=== PATIENT | male | born 1950 | race Caucasian/White ===

== ENCOUNTER → 2016-03-16 | Outpatient (CLI) | payer BC ==
[~2016-03-16] MED LIST: ALL180 PO; ALPR0.25 PO; ASCA500 PO; ASPI-435 PO; ATOR-14 PO; B-COTAB18 PO; COEN75CA PO; CRAN1CAP15 PO; LISI40TA PO; MULT-190 PO; MULT-506 PO; OMEP40CA18 PO; SERT1TAB71 PO; ZNT/300 PO
[2016-03-16 11:13] LABS: BASO ABS # 0.05 K/uL (0-0.2); COMPLETE YES; EOS % 4.8 %; HEMATOCRIT 38.5 % (42-52); IG% 0.2 %; LYMPH % 34.9 %; LYMPH ABS # 1.76 K/uL (1.2-3.4); MEAN CELL VOLUME 93.2 fL (80-100); MEAN CORPUSCULAR HEMOGLOBIN 31.5 pg (25-34); MEAN CORPUSCULAR HGB CONC 33.8 g/dl (32-36); MEAN PLATELET VOLUME 9.8 fL (7.4-10.4); MONO % 9.1 %; PLATELET COUNT 193 K/uL (130-400); RED BLOOD COUNT 4.13 M/uL (4.7-6.1); WHITE BLOOD COUNT 5.05 K/uL (4.8-10.8)
[2016-03-16 12:10] LABS: ALT/SGPT 28 U/L (12-78); AST/SGOT 17 U/L (15-37); BLOOD UREA NITROGEN 22 mg/dl (7-18); BUN/CREATININE RATIO 18.7 (10-20); CALCIUM 8.6 mg/dl (8.5-10.1); CARBON DIOXIDE 24 mmol/L (21-32); CHLORIDE 105 mmol/L (98-107); GLUCOSE 92 mg/dl (70-99); POTASSIUM 4.5 mmol/L (3.5-5.1); SODIUM 139 mmol/L (136-145)
[2016-03-16 12:14] LABS: ESTIMATED AVERAGE GLUCOSE 126 mg/dl; HA1C FLAG Normal (Normal)
[2016-03-16 12:21] LABS: ALB/GLOB RATIO 1.2 (0.9-2); ALKALINE PHOSPHATASE 66 U/L (45-117); CHOLESTEROL 157 mg/dl (0-200); HDL CHOLESTEROL 39 mg/dl; LDL CHOLESTEROL CALCULATED 83 mg/dl; TRIGLYCERIDES 177 mg/dl (0-150); VERY LOW DENSITY LIPOPROT CALC 35 mg/dl
== END | disposition home or self-care (01) ==
LOC: C.LABBC 08:26
PROVIDERS: ATTEND Internal Medicine Geriatric Medicine
DX: I10 Essential (primary) hypertension (principal); E78.5 Hyperlipidemia, unspecified; R73.9 Hyperglycemia, unspecified

== ENCOUNTER → 2016-09-18 | Outpatient (CLI) | payer BC ==
[2016-09-18 10:57] LABS: BASO % 0.4 %; BASO ABS # 0.02 K/uL (0-0.2); COMPLETE YES; EOS % 4.1 %; HEMATOCRIT 40.8 % (42-52); LYMPH % 37.7 %; LYMPH ABS # 1.75 K/uL (1.2-3.4); MEAN CELL VOLUME 93.6 fL (80-100); MEAN CORPUSCULAR HEMOGLOBIN 31.2 pg (25-34); MEAN CORPUSCULAR HGB CONC 33.3 g/dl (32-36); MONO % 9.3 %; NEUT % 48.5 %; PLATELET COUNT 222 K/uL (130-400); RED BLOOD COUNT 4.36 M/uL (4.7-6.1); WHITE BLOOD COUNT 4.64 K/uL (4.8-10.8)
[2016-09-18 11:13] LABS: BLOOD UREA NITROGEN 25 mg/dl (7-18); BUN/CREATININE RATIO 20.9 (10-20); CALCIUM 8.8 mg/dl (8.5-10.1); CARBON DIOXIDE 28 mmol/L (21-32); CHLORIDE 106 mmol/L (98-107); GLUCOSE 100 mg/dl (70-99); POTASSIUM 4.8 mmol/L (3.5-5.1); SODIUM 139 mmol/L (136-145)
== END | disposition home or self-care (01) ==
LOC: C.LABBC 08:37
PROVIDERS: ATTEND Internal Medicine Geriatric Medicine
DX: I10 Essential (primary) hypertension (principal); E78.5 Hyperlipidemia, unspecified; D64.9 Anemia, unspecified; R73.9 Hyperglycemia, unspecified

== ENCOUNTER → 2017-04-05 | Outpatient (CLI) | payer BC ==
[2017-04-05 11:24] LABS: ALBUMIN 3.9 gm/dl (3.4-5.0); ALT/SGPT 25 U/L (12-78); BLOOD UREA NITROGEN 31 mg/dl (7-18); CALCIUM 8.7 mg/dl (8.5-10.1); CARBON DIOXIDE 29 mmol/L (21-32); CHOLESTEROL 167 mg/dl (0-200); CREATININE 1.14 mg/dl (0.60-1.40); GLUCOSE 94 mg/dl (70-99); HEMOGLOBIN A1C 5.9 % (4.5-5.6); SODIUM 139 mmol/L (136-145)
[2017-04-05 11:34] LABS: ALKALINE PHOSPHATASE 58 U/L (45-117); AST/SGOT 20 U/L (15-37); LDL CHOLESTEROL CALCULATED 99 mg/dl; TOTAL PROTEIN 7.6 gm/dl (6.4-8.2)
[2017-04-05 11:40] LABS: BASO % 0.4 %; BASO ABS # 0.02 K/uL (0-0.2); EOS % 3.4 %; EOS ABS # 0.17 K/uL (0-0.5); HEMATOCRIT 36.7 % (42-52); HEMOGLOBIN 12.9 g/dL (14.0-18.0); IG# 0.01 K/uL (0.00-0.02); LYMPH % 34.1 %; MEAN CELL VOLUME 91.8 fL (80-100); MEAN CORPUSCULAR HEMOGLOBIN 32.3 pg (25-34); MEAN CORPUSCULAR HGB CONC 35.1 g/dl (32-36); MEAN PLATELET VOLUME 9.7 fL (7.4-10.4); MONO % 10.4 %; MONO ABS # 0.52 K/uL (0.11-0.59); NEUT % 51.5 %; NEUT ABS # 2.56 K/uL (1.4-6.5); PLATELET COUNT 195 K/uL (130-400); RED CELL DISTRIBUTION WIDTH CV 14.1 % (11.5-14.5); RED CELL DISTRIBUTION WIDTH SD 47.6 fL (36.4-46.3); WHITE BLOOD COUNT 4.98 K/uL (4.8-10.8)
== END | disposition home or self-care (01) ==
LOC: C.LABBC 07:55
PROVIDERS: ATTEND Internal Medicine Geriatric Medicine
DX: Z00.00 Encounter for general adult medical examination without abnormal findings (principal); I10 Essential (primary) hypertension; E78.5 Hyperlipidemia, unspecified; R73.9 Hyperglycemia, unspecified; D64.9 Anemia, unspecified